=== PATIENT | female | born 1960 | race Caucasian/White ===

== ENCOUNTER 2021-03-21 08:58 | Outpatient (CLI) | payer OTHER | END 2021-03-21 08:59 | disposition home or self-care (01) | LOC: CSHCT 08:58 | PROVIDERS: ATTEND Family Medicine | DX: R07.9 Chest pain, unspecified (principal) | CPT/HCPCS: 71275; 82565 ==

== ENCOUNTER 2021-05-13 08:49 | Inpatient (IN) | payer OTHER, SELFPAY ==
[~2021-05-13 08:49] MED LIST: PROPOFOL 200 MG/20 ML VIAL ONE; Rocuronium Bromide 10 MG/ML (10ML VIAL) ONE
[2021-05-13] MEDS ORDERED: Dexamethasone 10 MG/ML VIAL ONE (09:01)
[2021-05-13 10:07] LABS: SARS-CoV-2 NAA Rapid Test Not Detected (NotDetected)
[2021-05-13 10:45] LABS: #Monocytes 0.5 10x3/uL (0.0-1.1); #Neutrophils 7.1 10x3/uL (1.5-8.4); %Basophils 0.4 % (0.0-2.0); %Eosinophils 0.5 % (0.0-6.0); %Lymphocytes 4.8 % (18.0-47.0); %Monocytes 6.7 % (0.0-10.0); Hemoglobin 10.1 g/dL (12.0-15.5); Mean Corpuscular Hemoglobin 22.9 pg (27.0-33.0); Mean Corpuscular Volume 73.9 fl (81.6-98.3); Mean Platelet Volume 10.8 fl (7.4-10.4); Platelet Count 69 10x3/uL (150-450); RBC Distribution Width 16.4 % (11.5-14.5); Red Blood Cell (RBC) Count 4.41 10x6/uL (3.90-5.03); White Blood Cell (WBC) Count 8.1 10x3/uL (3.5-10.5)
[2021-05-13] MEDS ORDERED: Lorazepam 2 MG/ML VIAL ONE (10:56)
[2021-05-13 11:27] LABS: Anisocytosis SLIGHT = 6-15 cells (100X) (0-5/hpf); Microcytosis MODERATE=15-30 cells (100X) (0-5/hpf)
[2021-05-13 11:28] LABS: Platelet Morphology Comment Appears Decreased
[2021-05-13 12:12] LABS: ALT (SGPT) 14 U/L (8-55); AST (SGOT) 11 U/L (5-34); Alkaline Phosphatase 59 U/L (40-110); Anion Gap 14 mmol/L (10-20); BUN (Urea Nitrogen) 12 mg/dL (9.8-20.1); Bilirubin, Total 0.8 mg/dL (0.2-1.2); Calc. Creatinine Clearance 0 mL/min (70-130); Calcium 9.7 mg/dL (7.8-10.44); Carbon Dioxide 26 mmol/L (23-31); Chloride 101 mmol/L (98-107); Globulin 3.6 g/dL (2.4-3.5); Glucose 198 mg/dL (80-115); Potassium 4.2 mmol/L (3.5-5.1); Protein, Total 7.6 g/dL (5.8-8.1); Sodium 137 mmol/L (136-145)
[2021-05-13] MEDS ORDERED: Albuterol Sulfate 2.5 mg/3 ml Neb ONE (12:16)
[2021-05-13] MEDS ORDERED: Ondansetron PF 4 MG/2 ML Vial IVP PRN (12:26)
[2021-05-13] MEDS ORDERED: Acetaminophen 325 MG TAB PO PRN (12:26)
[2021-05-13] MEDS ORDERED: HYDROcodone/Acetaminophen 5/325 mg Tablet PO PRN (12:26)
[2021-05-13] MEDS ORDERED: Magnesium 2 GM/50 ML(in water) 2 GM in Premix Bag 1 BAG IVPB SCH (13:00)
[2021-05-13 13:27] LABS: ALV-art Gradient 43.155 mmHg (0-20); Actual Bicarbonate (HCO3a) 24.5 mEq/L (22-28); Base Excess (BEa) -0.4 mEq/L (-2.0 to +3.0); CO2 Tension 41.1 mmHg (35.0-45.0); Calcium, Ionized (arterial) 1.24 mmol/L (1.12-1.30); Carboxyhemoglobin (COHb) 0.6 gm% (0.0-3.0); Hemoglobin (Hb) 12.1 g/dL (12.0-16.0); O2 Tension (PaO2), arterial 55.2 mmHg (> 80.0); Potassium - ABG Lab 4.3 mmol/L (3.70-5.30); Puncture Site LRA; pH, Arterial 7.39 (7.35-7.45)
[2021-05-13] MEDS ORDERED: Furosemide 100 MG/10 ML VIAL SLOW IVP SCH (15:00)
[2021-05-13] MEDS ORDERED: Lorazepam 2 MG/ML VIAL SLOW IVP SCH ×2 (15:15→15:21)
[2021-05-13] MEDS ORDERED: methylPREDNISolone Sod Succ/PF 125 MG/2 ML VIAL IVP SCH (15:15)
[2021-05-13] MEDS ORDERED: Dextrose 5% in Water 1,000 ML IV PRN (15:16)
[2021-05-13] MEDS ORDERED: Dextrose 50% Abboject 50 ML SYRINGE SLOW IVP PRN (15:16)
[2021-05-13] MEDS ORDERED: clonazePAM 0.5 MG TAB PO PRN (15:18)
[2021-05-13 15:20] LABS: Actual Bicarbonate (HCO3a) 23.2 mEq/L (22-28); Base Excess (BEa) -4.9 mEq/L (-2.0 to +3.0); CO2 Tension 56.6 mmHg (35.0-45.0); Calcium, Ionized (arterial) 1.22 mmol/L (1.12-1.30); Carboxyhemoglobin (COHb) 0.6 gm% (0.0-3.0); Hemoglobin (Hb) 12.3 g/dL (12.0-16.0); O2 Tension (PaO2), arterial 250.4 mmHg (> 80.0); Potassium - ABG Lab 4.2 mmol/L (3.70-5.30); Puncture Site RRA; pH, Arterial 7.23 (7.35-7.45)
[2021-05-13] MEDS ORDERED: Amlodipine 10 MG TAB PO SCH (15:30)
[2021-05-13] MEDS: methylPREDNISolone Sod Succ 40 MG VIAL IVP SCH (17:41)
[2021-05-13 18:08] LABS: Actual Bicarbonate (HCO3a) 24.8 mEq/L (22-28); Base Excess (BEa) -2.6 mEq/L (-2.0 to +3.0); CO2 Tension 54.3 mmHg (35.0-45.0); Carboxyhemoglobin (COHb) 0.6 gm% (0.0-3.0); Hemoglobin (Hb) 12.5 g/dL (12.0-16.0); O2 Tension (PaO2), arterial 77.9 mmHg (> 80.0); Potassium - ABG Lab 4.2 mmol/L (3.70-5.30); Puncture Site LRA; pH, Arterial 7.28 (7.35-7.45)
[2021-05-13] MEDS ORDERED: Dexmedetomidine In 0.9 % NaCl 100 ML ONE (18:09)
[2021-05-13 18:12] LABS: ALV-art Gradient 282.025 mmHg (0-20)
[2021-05-13] MEDS: HumaLOG 300 UNITS/3 ML VIAL SC PRN (18:36)
[2021-05-13] MEDS: Dexmedetomidine In 0.9 % NaCl 100 ML IVPB SCH (18:38)
[2021-05-13] MEDS ORDERED: Norepinephrine 8 MG/0.9% NS 250 ML ONE (20:14)
[2021-05-13] MEDS ORDERED: Ventilator Sedation Protocol 1 EACH FS SCH (20:45)
[2021-05-13] MEDS ORDERED: Ventilator Sedation Protocol FS SCH (20:45)
[2021-05-13] MEDS ORDERED: DISCONTINUE PREVIOUS NARCOTIC PAIN MEDICATIONS AND BENZODIAZEPINES FS SCH (20:45)
[2021-05-13] MEDS ORDERED: Propofol BOLUS 1,000 MG/100 ML VIAL IV PRN (20:45)
[2021-05-13] MEDS ORDERED: Lorazepam 2 MG/ML VIAL SLOW IVP PRN (20:45)
[2021-05-13] MEDS ORDERED: Morphine 2 MG/ML VIAL SLOW IVP PRN (20:45)
[2021-05-13] MEDS ORDERED: Fentanyl BOLUS 250 ML IVPB PRN (20:45)
[2021-05-13] MEDS ORDERED: methylPREDNISolone Sod Succ 40 MG VIAL IVP SCH (21:00)
[2021-05-13 21:22] LABS: Actual Bicarbonate (HCO3a) 27.2 mEq/L (22-28); Base Excess (BEa) -3.7 mEq/L (-2.0 to +3.0); CO2 Tension 84.4 mmHg (35.0-45.0); Calcium, Ionized (arterial) 1.23 mmol/L (1.12-1.30); Carboxyhemoglobin (COHb) 0.6 gm% (0.0-3.0); O2 Tension (PaO2), arterial 101.9 mmHg (> 80.0); Potassium - ABG Lab 4.5 mmol/L (3.70-5.30); Puncture Site RRA; pH, Arterial 7.13 (7.35-7.45)
[2021-05-13] MEDS ORDERED: Sodium Bicarbonate 100 MEQ in Dextrose 5% in Water 1,000 ML IV SCH (21:30)
[2021-05-13] MEDS: Gabapentin 300 MG CAP PO SCH (21:57)
[2021-05-13] MEDS: Metoprolol Tartrate 25 MG TAB PO SCH (21:58)
[2021-05-13] MEDS: Oseltamivir 75 MG CAP PO SCH (21:59)
[2021-05-13] MEDS: fentaNYL Citrate-0.9 % NaCl/PF 100 ML IVPB SCH (22:16)
[2021-05-13] MEDS: Propofol 1,000 MG/100 ML VIAL IV PRN (22:16)
[2021-05-13] MEDS: Propofol 1,000 MG/100 ML VIAL IV ONE ×2 (22:27→22:29)
[2021-05-13 22:35] LABS: Base Excess (BEa) -2.7 mEq/L (-2.0 to +3.0); CO2 Tension 84.9 mmHg (35.0-45.0); Calcium, Ionized (arterial) 1.21 mmol/L (1.12-1.30); Carboxyhemoglobin (COHb) 0.4 gm% (0.0-3.0); Hemoglobin (Hb) 11.7 g/dL (12.0-16.0); O2 Tension (PaO2), arterial 99.6 mmHg (> 80.0); Potassium - ABG Lab 4.8 mmol/L (3.70-5.30); Puncture Site RRA; pH, Arterial 7.14 (7.35-7.45)
[2021-05-13 22:37] LABS: ALV-art Gradient 364.675 mmHg (0-20)
[2021-05-13] MEDS: Vecuronium Bromide 50 MG in Sodium Chloride 0.9% 250 ML 250 ML IV SCH (23:15)
[2021-05-14] MEDS: Propofol 1,000 MG/100 ML VIAL IV PRN ×8 (02:17→22:04)
[2021-05-14] MEDS: methylPREDNISolone Sod Succ 40 MG VIAL IVP SCH ×5 (02:20→23:53)
[2021-05-14] MEDS ORDERED: Sodium Bicarb 50 MEQ/50 ML VIAL IVP SCH (02:30)
[2021-05-14] MEDS: HumaLOG 300 UNITS/3 ML VIAL SC PRN ×5 (03:00→23:56)
[2021-05-14 03:57] LABS: ALV-art Gradient 406.525 mmHg (0-20); Actual Bicarbonate (HCO3a) 27.9 mEq/L (22-28); Base Excess (BEa) -0.7 mEq/L (-2.0 to +3.0); CO2 Tension 67.9 mmHg (35.0-45.0); Calcium, Ionized (arterial) 1.13 mmol/L (1.12-1.30); Carboxyhemoglobin (COHb) 0.4 gm% (0.0-3.0); O2 Tension (PaO2), arterial 221.6 mmHg (> 80.0); Puncture Site RRA; pH, Arterial 7.23 (7.35-7.45)
[2021-05-14 04:06] LABS: Anion Gap 16 mmol/L (10-20); BUN (Urea Nitrogen) 21 mg/dL (9.8-20.1); Calc. Creatinine Clearance 75 mL/min (70-130); Calcium 8.7 mg/dL (7.8-10.44); Carbon Dioxide 31 mmol/L (23-31); Chloride 94 mmol/L (98-107); Glucose 263 mg/dL (80-115); Potassium 5.1 mmol/L (3.5-5.1); Sodium 136 mmol/L (136-145)
[2021-05-14] MEDS: Vecuronium Bromide 50 MG in Sodium Chloride 0.9% 250 ML 250 ML IV SCH ×3 (04:08→20:48)
[2021-05-14 05:30] LABS: Hemoglobin 10.4 g/dL (12.0-15.5); Mean Corpuscular HGB CONC 30.4 g/dL (32.0-36.0); Mean Corpuscular Volume 75.5 fl (81.6-98.3); Mean Platelet Volume 11.3 fl (7.4-10.4); Platelet Count 117 10x3/uL (150-450); RBC Distribution Width 16.6 % (11.5-14.5); Red Blood Cell (RBC) Count 4.53 10x6/uL (3.90-5.03)
[2021-05-14 05:37] LABS: MDiff Complete? YES
[2021-05-14 05:57] LABS: Band 8 % (5-11); Lymphocytes 2 % (21-51); Monocytes 6 % (0-10); Neutrophil 83 % (42-75); Reactive Lymphocytes 1 % (0-10)
[2021-05-14 05:59] LABS: Anisocytosis SLIGHT = 6-15 cells (100X) (0-5/hpf); Hypochromia SLIGHT = 6-15 cells (100X) (0-5/hpf); Microcytosis SLIGHT = 6-15 cells (100X) (0-5/hpf); Polychromasia SLIGHT = 2-3 cells (100X) (0-2/hpf); Stomatocytes SLIGHT = 2-5 cells (100X) (0-1/hpf)
[2021-05-14 06:00] LABS: Platelet Morphology Comment Appears Decreased
[2021-05-14] MEDS: fentaNYL Citrate-0.9 % NaCl/PF 100 ML IVPB SCH ×2 (07:45→22:04)
[2021-05-14] MEDS ORDERED: Amlodipine 10 MG TAB PO SCH (09:00)
[2021-05-14] MEDS: Enoxaparin Sodium 40 MG/0.4 ML SYRINGE SC SCH (09:20)
[2021-05-14] MEDS: Metoprolol Tartrate 25 MG TAB PO SCH ×2 (10:28→20:58)
[2021-05-14] MEDS: Gabapentin 300 MG CAP PO SCH ×2 (10:28→20:58)
[2021-05-14] MEDS: Pantoprazole 80 MG, Admixture Fee 1 EACH in Sodium Chloride 0.9% 100 ML IVPB SCH ×2 (10:35→18:45)
[2021-05-14] MEDS: Norepinephrine 8 MG/0.9% NS 250 ML IVPB SCH (11:45)
[2021-05-14] MEDS: Oseltamivir 75 MG CAP PO SCH ×2 (11:46→20:58)
[2021-05-15] MEDS: Propofol 1,000 MG/100 ML VIAL IV PRN ×8 (02:10→22:37)
[2021-05-15] MEDS: Vecuronium Bromide 50 MG in Sodium Chloride 0.9% 250 ML 250 ML IV SCH (02:29)
[2021-05-15] MEDS: Pantoprazole 80 MG, Admixture Fee 1 EACH in Sodium Chloride 0.9% 100 ML IVPB SCH (06:11)
[2021-05-15] MEDS: methylPREDNISolone Sod Succ 40 MG VIAL IVP SCH ×2 (06:11→21:20)
[2021-05-15] MEDS: HumaLOG 300 UNITS/3 ML VIAL SC PRN ×2 (06:12→13:46)
[2021-05-15 08:01] LABS: Actual Bicarbonate (HCO3a) 25.7 mEq/L (22-28); Base Excess (BEa) 1.4 mEq/L (-2.0 to +3.0); CO2 Tension 39.5 mmHg (35.0-45.0); Calcium, Ionized (arterial) 1.11 mmol/L (1.12-1.30); Carboxyhemoglobin (COHb) 0.3 gm% (0.0-3.0); Hemoglobin (Hb) 10.1 g/dL (12.0-16.0); O2 Tension (PaO2), arterial 252.8 mmHg (> 80.0); Potassium - ABG Lab 3.6 mmol/L (3.70-5.30); Puncture Site LRA; pH, Arterial 7.43 (7.35-7.45)
[2021-05-15 08:04] LABS: ALV-art Gradient 268.225 mmHg (0-20)
[2021-05-15] MEDS: Enoxaparin Sodium 40 MG/0.4 ML SYRINGE SC SCH (09:58)
[2021-05-15] MEDS: Oseltamivir 75 MG CAP PO SCH (09:58)
[2021-05-15] MEDS: Gabapentin 300 MG CAP PO SCH ×2 (09:58→21:20)
[2021-05-15] MEDS: Pantoprazole 40 MG VIAL IVP SCH (09:59)
[2021-05-15 10:53] LABS: #Monocytes 0.6 10x3/uL (0.0-1.1); #Neutrophils 12.9 10x3/uL (1.5-8.4); %Basophils 0.1 % (0.0-2.0); %Lymphocytes 4.5 % (18.0-47.0); %Monocytes 4.2 % (0.0-10.0); %Neutrophils 90.3 % (40.0-75.0); Hemoglobin 10.2 g/dL (12.0-15.5); Mean Corpuscular HGB CONC 30.4 g/dL (32.0-36.0); Mean Corpuscular Hemoglobin 22.4 pg (27.0-33.0); Mean Corpuscular Volume 73.5 fl (81.6-98.3); Mean Platelet Volume 11.6 fl (7.4-10.4); Platelet Count 161 10x3/uL (150-450); RBC Distribution Width 17.1 % (11.5-14.5); Red Blood Cell (RBC) Count 4.56 10x6/uL (3.90-5.03); White Blood Cell (WBC) Count 14.3 10x3/uL (3.5-10.5)
[2021-05-15 11:00] LABS: ALT (SGPT) 15 U/L (8-55); AST (SGOT) 19 U/L (5-34); Albumin 3.4 g/dL (3.4-4.8); Alkaline Phosphatase 49 U/L (40-110); Anion Gap 17 mmol/L (10-20); BUN (Urea Nitrogen) 51 mg/dL (9.8-20.1); Bilirubin, Total 0.3 mg/dL (0.2-1.2); Calc. Creatinine Clearance 45 mL/min (70-130); Calcium 8.8 mg/dL (7.8-10.44); Carbon Dioxide 25 mmol/L (23-31); Chloride 96 mmol/L (98-107); Globulin 3.4 g/dL (2.4-3.5); Glucose 202 mg/dL (80-115); Magnesium 2.6 mg/dL (1.6-2.6); Potassium 3.6 mmol/L (3.5-5.1); Protein, Total 6.8 g/dL (5.8-8.1); Sodium 134 mmol/L (136-145)
[2021-05-15 11:31] LABS: Actual Bicarbonate (HCO3a) 23.8 mEq/L (22-28); Base Excess (BEa) -0.3 mEq/L (-2.0 to +3.0); CO2 Tension 36.6 mmHg (35.0-45.0); Carboxyhemoglobin (COHb) 0.1 gm% (0.0-3.0); Hemoglobin (Hb) 10.4 g/dL (12.0-16.0); O2 Tension (PaO2), arterial 105.2 mmHg (> 80.0); Potassium - ABG Lab 3.7 mmol/L (3.70-5.30); Puncture Site RRA; pH, Arterial 7.43 (7.35-7.45)
[2021-05-15] MEDS: Metoprolol Tartrate 25 MG TAB PO SCH ×2 (13:39→21:21)
[2021-05-15] MEDS: fentaNYL Citrate-0.9 % NaCl/PF 100 ML IVPB SCH (13:53)
[2021-05-16] MEDS: Propofol 1,000 MG/100 ML VIAL IV PRN ×8 (01:35→22:26)
[2021-05-16 03:58] LABS: #Monocytes 0.7 10x3/uL (0.0-1.1); #Neutrophils 11.7 10x3/uL (1.5-8.4); %Basophils 0.1 % (0.0-2.0); %Lymphocytes 4.7 % (18.0-47.0); %Monocytes 5.2 % (0.0-10.0); %Neutrophils 89.4 % (40.0-75.0); Hemoglobin 9.7 g/dL (12.0-15.5); Mean Corpuscular HGB CONC 31.1 g/dL (32.0-36.0); Mean Corpuscular Hemoglobin 22.9 pg (27.0-33.0); Mean Corpuscular Volume 73.6 fl (81.6-98.3); Mean Platelet Volume 11.2 fl (7.4-10.4); Platelet Count 175 10x3/uL (150-450); RBC Distribution Width 17.2 % (11.5-14.5); Red Blood Cell (RBC) Count 4.24 10x6/uL (3.90-5.03); White Blood Cell (WBC) Count 13.1 10x3/uL (3.5-10.5)
[2021-05-16 04:21] LABS: ALT (SGPT) 13 U/L (8-55); AST (SGOT) 17 U/L (5-34); Albumin 3.3 g/dL (3.4-4.8); Alkaline Phosphatase 46 U/L (40-110); Anion Gap 18 mmol/L (10-20); BUN (Urea Nitrogen) 70 mg/dL (9.8-20.1); Bilirubin, Total 0.3 mg/dL (0.2-1.2); Calc. Creatinine Clearance 38 mL/min (70-130); Calcium 8.8 mg/dL (7.8-10.44); Carbon Dioxide 26 mmol/L (23-31); Chloride 96 mmol/L (98-107); Globulin 3.3 g/dL (2.4-3.5); Glucose 174 mg/dL (80-115); Magnesium 2.7 mg/dL (1.6-2.6); Potassium 4.3 mmol/L (3.5-5.1); Protein, Total 6.6 g/dL (5.8-8.1); Sodium 136 mmol/L (136-145)
[2021-05-16] MEDS: fentaNYL Citrate-0.9 % NaCl/PF 100 ML IVPB SCH ×2 (04:22→16:25)
[2021-05-16] MEDS: HumaLOG 300 UNITS/3 ML VIAL SC PRN ×3 (05:11→17:53)
[2021-05-16 08:28] LABS: Actual Bicarbonate (HCO3a) 25.2 mEq/L (22-28); Calcium, Ionized (arterial) 1.14 mmol/L (1.12-1.30); Carboxyhemoglobin (COHb) 0.3 gm% (0.0-3.0); Hemoglobin (Hb) 10.4 g/dL (12.0-16.0); Potassium - ABG Lab 4.2 mmol/L (3.70-5.30); Puncture Site LRA; pH, Arterial 7.33 (7.35-7.45)
[2021-05-16] MEDS: Oseltamivir 6 MG/ML ORAL SUSP PO SCH (08:59)
[2021-05-16] MEDS: Bisacodyl 5 MG TAB PO PRN (09:00)
[2021-05-16] MEDS: Enoxaparin Sodium 30 MG/0.3 ML SYRINGE SC SCH (09:00)
[2021-05-16] MEDS: Gabapentin 300 MG CAP PO SCH ×2 (09:03→20:24)
[2021-05-16] MEDS: Metoprolol Tartrate 25 MG TAB PO SCH ×2 (09:04→20:24)
[2021-05-16] MEDS: methylPREDNISolone Sod Succ 40 MG VIAL IVP SCH ×2 (09:04→20:25)
[2021-05-16] MEDS: Pantoprazole 40 MG VIAL IVP SCH (09:05)
[2021-05-16] MEDS ORDERED: Sodium Chloride 0.9% 500 ML IV SCH (09:30)
[2021-05-16] MEDS: Sodium Chloride 0.9% 1,000 ML IV SCH ×2 (10:42→20:24)
[2021-05-16] MEDS: Norepinephrine 8 MG/0.9% NS 250 ML IVPB SCH (16:25)
[2021-05-17] MEDS: Propofol 1,000 MG/100 ML VIAL IV PRN ×6 (01:04→17:54)
[2021-05-17 03:59] LABS: Anion Gap 17 mmol/L (10-20); BUN (Urea Nitrogen) 93 mg/dL (9.8-20.1); Calc. Creatinine Clearance 36 mL/min (70-130); Calcium 8.4 mg/dL (7.8-10.44); Carbon Dioxide 26 mmol/L (23-31); Chloride 98 mmol/L (98-107); Glucose 136 mg/dL (80-115); Potassium 5.3 mmol/L (3.5-5.1); Sodium 136 mmol/L (136-145)
[2021-05-17] MEDS: Sodium Chloride 0.9% 1,000 ML IV SCH (04:34)
[2021-05-17] MEDS: fentaNYL Citrate-0.9 % NaCl/PF 100 ML IVPB SCH (06:27)
[2021-05-17] MEDS: Enoxaparin Sodium 30 MG/0.3 ML SYRINGE SC SCH (08:31)
[2021-05-17] MEDS: Gabapentin 300 MG CAP PO SCH ×2 (08:31→20:20)
[2021-05-17] MEDS: methylPREDNISolone Sod Succ 40 MG VIAL IVP SCH ×2 (08:32→20:20)
[2021-05-17] MEDS: Metoprolol Tartrate 25 MG TAB PO SCH ×2 (08:33→20:21)
[2021-05-17] MEDS: Pantoprazole 40 MG VIAL IVP SCH (08:33)
[2021-05-17] MEDS: Dexmedetomidine In 0.9 % NaCl 100 ML IVPB SCH ×2 (08:43→18:20)
[2021-05-17] MEDS: Oseltamivir 6 MG/ML ORAL SUSP PO SCH (08:45)
[2021-05-17] MEDS ORDERED: Moisturizing Cream (Eucerin) 113 GM JAR TOP PRN (09:02)
[2021-05-17] MEDS ORDERED: Loperamide HCl 2 MG CAP PO PRN (09:02)
[2021-05-17] MEDS ORDERED: Artificial Tear Sol 15 ML BOT EA EYE PRN (09:02)
[2021-05-17 12:07] LABS: ALV-art Gradient 139.725 mmHg (0-20); Actual Bicarbonate (HCO3a) 25.6 mEq/L (22-28); Base Excess (BEa) -1.3 mEq/L (-2.0 to +3.0); CO2 Tension 54.7 mmHg (35.0-45.0); Calcium, Ionized (arterial) 1.14 mmol/L (1.12-1.30); Carboxyhemoglobin (COHb) 0.4 gm% (0.0-3.0); O2 Tension (PaO2), arterial 77.1 mmHg (> 80.0); Potassium - ABG Lab 5.1 mmol/L (3.70-5.30); Puncture Site RRA; pH, Arterial 7.29 (7.35-7.45)
[2021-05-17 12:58] LABS: Anion Gap 16 mmol/L (10-20); BUN (Urea Nitrogen) 99 mg/dL (9.8-20.1); Calc. Creatinine Clearance 36 mL/min (70-130); Calcium 8.6 mg/dL (7.8-10.44); Carbon Dioxide 25 mmol/L (23-31); Chloride 100 mmol/L (98-107); Glucose 129 mg/dL (80-115); Potassium 5.3 mmol/L (3.5-5.1); Sodium 136 mmol/L (136-145)
[2021-05-17] MEDS: Bisacodyl 5 MG TAB PO PRN (20:22)
[2021-05-18] MEDS: Dexmedetomidine In 0.9 % NaCl 100 ML IVPB SCH ×3 (01:42→10:44)
[2021-05-18] MEDS: Propofol 1,000 MG/100 ML VIAL IV PRN (01:43)
[2021-05-18 03:55] LABS: #Monocytes 0.6 10x3/uL (0.0-1.1); #Neutrophils 4.6 10x3/uL (1.5-8.4); %Basophils 0.2 % (0.0-2.0); %Monocytes 9.6 % (0.0-10.0); %Neutrophils 74.9 % (40.0-75.0); Hemoglobin 9.2 g/dL (12.0-15.5); Mean Corpuscular HGB CONC 30.3 g/dL (32.0-36.0); Mean Corpuscular Hemoglobin 22.4 pg (27.0-33.0); Mean Corpuscular Volume 74.1 fl (81.6-98.3); Mean Platelet Volume 10.4 fl (7.4-10.4); Platelet Count 173 10x3/uL (150-450); White Blood Cell (WBC) Count 6.2 10x3/uL (3.5-10.5)
[2021-05-18 04:17] LABS: ALT (SGPT) 40 U/L (8-55); AST (SGOT) 25 U/L (5-34); Albumin 3.4 g/dL (3.4-4.8); Alkaline Phosphatase 48 U/L (40-110); Anion Gap 17 mmol/L (10-20); BUN (Urea Nitrogen) 109 mg/dL (9.8-20.1); Bilirubin, Total 0.3 mg/dL (0.2-1.2); Calc. Creatinine Clearance 38 mL/min (70-130); Carbon Dioxide 25 mmol/L (23-31); Chloride 103 mmol/L (98-107); Globulin 3.3 g/dL (2.4-3.5); Glucose 147 mg/dL (80-115); Magnesium 3.5 mg/dL (1.6-2.6); Phosphorus 7.5 mg/dL (2.3-4.7); Potassium 5.2 mmol/L (3.5-5.1); Protein, Total 6.7 g/dL (5.8-8.1); Sodium 140 mmol/L (136-145)
[2021-05-18] MEDS: Oseltamivir 6 MG/ML ORAL SUSP PO SCH (09:06)
[2021-05-18] MEDS: Metoprolol Tartrate 25 MG TAB PO SCH (09:06)
[2021-05-18] MEDS: methylPREDNISolone Sod Succ 40 MG VIAL IVP SCH ×2 (09:06→20:08)
[2021-05-18] MEDS: Gabapentin 300 MG CAP PO SCH ×2 (09:06→19:59)
[2021-05-18] MEDS: Enoxaparin Sodium 30 MG/0.3 ML SYRINGE SC SCH (09:07)
[2021-05-18] MEDS: Pantoprazole 40 MG VIAL IVP SCH (09:07)
[2021-05-18 10:50] LABS: Actual Bicarbonate (HCO3a) 27.3 mEq/L (22-28); Base Excess (BEa) 1.2 mEq/L (-2.0 to +3.0); CO2 Tension 50.4 mmHg (35.0-45.0); Calcium, Ionized (arterial) 1.23 mmol/L (1.12-1.30); Carboxyhemoglobin (COHb) 0.3 gm% (0.0-3.0); Hemoglobin (Hb) 9.5 g/dL (12.0-16.0); O2 Tension (PaO2), arterial 72.8 mmHg (> 80.0); Potassium - ABG Lab 4.8 mmol/L (3.70-5.30); Puncture Site LRA; pH, Arterial 7.35 (7.35-7.45)
[2021-05-18] MEDS: HumaLOG 300 UNITS/3 ML VIAL SC PRN (12:21)
[2021-05-18] MEDS: hydrALAZINE 20 MG/ML VIAL SLOW IVP PRN ×2 (15:07→21:49)
[2021-05-18] MEDS ORDERED: Amlodipine 10 MG TAB PO SCH (16:30)
[2021-05-18] MEDS: Labetalol HCl 100 MG/20 ML VIAL SLOW IVP PRN ×2 (16:35→22:09)
[2021-05-18] MEDS: Metoprolol Tartrate 5 MG/5 ML VIAL IVP SCH (20:08)
[2021-05-18] MEDS ORDERED: Morphine 4 MG/ML VIAL SLOW IVP SCH (22:30)
[2021-05-18] MEDS ORDERED: Nitroglycerin 2% Ointment 1 INCH/1 GM Packet TOP SCH (22:30)
[2021-05-18] MEDS ORDERED: Lorazepam 2 MG/ML VIAL SLOW IVP SCH (23:45)
[2021-05-18] MEDS ORDERED: Labetalol HCl 100 MG/20 ML VIAL SLOW IVP SCH (23:45)
[2021-05-18] MEDS ORDERED: hydrALAZINE 20 MG/ML VIAL SLOW IVP SCH (23:45)
[2021-05-18] MEDS ORDERED: cloNIDine 0.2mg/24 Hour PATCH TD SCH (23:45)
[2021-05-19] MEDS: Metoprolol Tartrate 5 MG/5 ML VIAL IVP SCH ×4 (01:00→20:04)
[2021-05-19] MEDS: niCARdipine 25 MG in Sodium Chloride 0.9% 250 ML 250 ML IVPB SCH ×11 (02:35→22:42)
[2021-05-19 04:08] LABS: #Basophils 0.1 10x3/uL (0.0-0.2); #Monocytes 0.7 10x3/uL (0.0-1.1); #Neutrophils 6.8 10x3/uL (1.5-8.4); %Basophils 0.6 % (0.0-2.0); %Eosinophils 0.1 % (0.0-6.0); %Lymphocytes 9.7 % (18.0-47.0); %Monocytes 7.5 % (0.0-10.0); %Neutrophils 77.4 % (40.0-75.0); Hemoglobin 10.3 g/dL (12.0-15.5); Mean Corpuscular HGB CONC 30.4 g/dL (32.0-36.0); Mean Corpuscular Hemoglobin 22.6 pg (27.0-33.0); Mean Corpuscular Volume 74.5 fl (81.6-98.3); Mean Platelet Volume 9.8 fl (7.4-10.4); Platelet Count 199 10x3/uL (150-450); RBC Distribution Width 16.6 % (11.5-14.5); Red Blood Cell (RBC) Count 4.55 10x6/uL (3.90-5.03); White Blood Cell (WBC) Count 8.8 10x3/uL (3.5-10.5)
[2021-05-19 04:19] LABS: Anion Gap 16 mmol/L (10-20); BUN (Urea Nitrogen) 96 mg/dL (9.8-20.1); Calc. Creatinine Clearance 56 mL/min (70-130); Calcium 10.1 mg/dL (7.8-10.44); Carbon Dioxide 28 mmol/L (23-31); Chloride 108 mmol/L (98-107); Glucose 125 mg/dL (80-115); Sodium 147 mmol/L (136-145)
[2021-05-19] MEDS ORDERED: Lorazepam 2 MG/ML VIAL SLOW IVP SCH (05:15)
[2021-05-19] MEDS ORDERED: Morphine 4 MG/ML VIAL SLOW IVP SCH (05:15)
[2021-05-19] MEDS ORDERED: Lorazepam 2 MG/ML VIAL SLOW IVP PRN (05:34)
[2021-05-19] MEDS: Pantoprazole 40 MG VIAL IVP SCH (09:06)
[2021-05-19] MEDS: Enoxaparin Sodium 30 MG/0.3 ML SYRINGE SC SCH (09:07)
[2021-05-19] MEDS: methylPREDNISolone Sod Succ 40 MG VIAL IVP SCH ×2 (09:07→20:05)
[2021-05-19] MEDS: Gabapentin 300 MG CAP PO SCH ×2 (11:25→20:05)
[2021-05-19] MEDS: Amlodipine 10 MG TAB PO SCH (11:25)
[2021-05-19] MEDS: Labetalol HCl 100 MG/20 ML VIAL SLOW IVP PRN ×2 (11:54→15:28)
[2021-05-19] MEDS: hydrALAZINE 20 MG/ML VIAL SLOW IVP PRN ×2 (15:04→22:49)
[2021-05-19] MEDS ORDERED: cloNIDine 0.1mg/24 Hour PATCH TD SCH (16:00)
[2021-05-19] MEDS: Morphine 4 MG/ML VIAL SLOW IVP PRN ×2 (18:43→21:48)
[2021-05-20] MEDS: niCARdipine 25 MG in Sodium Chloride 0.9% 250 ML 250 ML IVPB SCH ×10 (00:56→23:55)
[2021-05-20] MEDS: Metoprolol Tartrate 5 MG/5 ML VIAL IVP SCH ×4 (01:46→20:44)
[2021-05-20] MEDS: hydrALAZINE 20 MG/ML VIAL SLOW IVP PRN (03:18)
[2021-05-20] MEDS: Labetalol HCl 100 MG/20 ML VIAL SLOW IVP PRN ×2 (04:35→09:42)
[2021-05-20] MEDS: Amlodipine 10 MG TAB PO SCH (09:17)
[2021-05-20] MEDS: Gabapentin 300 MG CAP PO SCH ×2 (09:18→20:44)
[2021-05-20] MEDS: methylPREDNISolone Sod Succ 40 MG VIAL IVP SCH ×2 (09:22→20:45)
[2021-05-20] MEDS: Enoxaparin Sodium 40 MG/0.4 ML SYRINGE SC SCH (09:23)
[2021-05-20] MEDS: Pantoprazole 40 MG VIAL IVP SCH (09:23)
[2021-05-20 10:18] LABS: Anion Gap 14 mmol/L (10-20); BUN (Urea Nitrogen) 73 mg/dL (9.8-20.1); Calc. Creatinine Clearance 101 mL/min (70-130); Calcium 9.8 mg/dL (7.8-10.44); Carbon Dioxide 26 mmol/L (23-31); Chloride 113 mmol/L (98-107); Glucose 166 mg/dL (80-115); Potassium 4.1 mmol/L (3.5-5.1); Sodium 149 mmol/L (136-145)
[2021-05-20] MEDS: Dextrose 5% in Water 1,000 ML IV SCH (12:15)
[2021-05-20] MEDS ORDERED: Artificial Tear Sol 15 ML BOT EA EYE PRN (21:13)
[2021-05-20] MEDS: Morphine 4 MG/ML VIAL SLOW IVP PRN (23:57)
[2021-05-21] MEDS: niCARdipine 25 MG in Sodium Chloride 0.9% 250 ML 250 ML IVPB SCH ×6 (02:30→21:25)
[2021-05-21] MEDS: Metoprolol Tartrate 5 MG/5 ML VIAL IVP SCH ×2 (02:30→08:59)
[2021-05-21 03:49] LABS: Anion Gap 13 mmol/L (10-20); BUN (Urea Nitrogen) 63 mg/dL (9.8-20.1); Calc. Creatinine Clearance 116 mL/min (70-130); Calcium 9.7 mg/dL (7.8-10.44); Carbon Dioxide 25 mmol/L (23-31); Chloride 107 mmol/L (98-107); Glucose 169 mg/dL (80-115); Potassium 4.1 mmol/L (3.5-5.1); Sodium 141 mmol/L (136-145)
[2021-05-21 07:06] LABS: Troponin I 0.041 ng/mL (< 0.028)
[2021-05-21] MEDS: Dextrose 5% in Water 1,000 ML IV SCH (07:30)
[2021-05-21] MEDS ORDERED: Lisinopril 10 MG TAB PO SCH (09:15)
[2021-05-21] MEDS: Amlodipine 10 MG TAB PO SCH (09:36)
[2021-05-21] MEDS: Gabapentin 300 MG CAP PO SCH ×2 (09:37→20:11)
[2021-05-21] MEDS: Enoxaparin Sodium 40 MG/0.4 ML SYRINGE SC SCH (09:37)
[2021-05-21] MEDS: methylPREDNISolone Sod Succ 40 MG VIAL IVP SCH ×2 (09:39→21:25)
[2021-05-21 13:32] LABS: CKMB 1.9 ng/mL (0-6.6)
[2021-05-21] MEDS: HYDROcodone/Acetaminophen 5/325 mg Tablet PO PRN ×2 (15:57→20:12)
[2021-05-21 18:03] LABS: SARS-CoV-2 PCR by NAA Not Detected (NotDetected)
[2021-05-21] MEDS: Famotidine 20 MG TAB PO SCH (20:12)
[2021-05-21] MEDS: Lisinopril 10 MG TAB PO SCH (20:12)
[2021-05-21] MEDS: cloNIDine 0.1 MG TAB PO SCH (20:12)
[2021-05-22] MEDS: Labetalol HCl 100 MG/20 ML VIAL SLOW IVP PRN ×2 (00:36→04:19)
[2021-05-22] MEDS: niCARdipine 25 MG in Sodium Chloride 0.9% 250 ML 250 ML IVPB SCH ×6 (01:25→17:53)
[2021-05-22 04:30] LABS: Anion Gap 14 mmol/L (10-20); BUN (Urea Nitrogen) 48 mg/dL (9.8-20.1); Calc. Creatinine Clearance 135 mL/min (70-130); Calcium 9.3 mg/dL (7.8-10.44); Carbon Dioxide 23 mmol/L (23-31); Chloride 108 mmol/L (98-107); Glucose 183 mg/dL (80-115); Potassium 4.3 mmol/L (3.5-5.1); Sodium 141 mmol/L (136-145)
[2021-05-22 04:41] LABS: Troponin I 0.035 ng/mL (< 0.028)
[2021-05-22] MEDS: Gabapentin 300 MG CAP PO SCH ×2 (08:19→20:09)
[2021-05-22] MEDS: cloNIDine 0.1 MG TAB PO SCH ×2 (08:20→20:08)
[2021-05-22] MEDS: Amlodipine 10 MG TAB PO SCH (08:21)
[2021-05-22] MEDS: Famotidine 20 MG TAB PO SCH ×2 (08:21→20:08)
[2021-05-22] MEDS: methylPREDNISolone Sod Succ 40 MG VIAL IVP SCH (08:21)
[2021-05-22] MEDS: Lisinopril 10 MG TAB PO SCH (08:21)
[2021-05-22] MEDS: Enoxaparin Sodium 40 MG/0.4 ML SYRINGE SC SCH (08:22)
[2021-05-22] MEDS: HYDROcodone/Acetaminophen 5/325 mg Tablet PO PRN (12:00)
[2021-05-22] MEDS: hydrALAZINE 25 MG TAB PO SCH ×3 (12:26→20:10)
[2021-05-22] MEDS ORDERED: cloNIDine 0.1 MG TAB PO SCH (15:00)
[2021-05-22] MEDS: Lisinopril 20 MG TAB PO SCH (20:10)
[2021-05-23 04:12] LABS: Anion Gap 11 mmol/L (10-20); BUN (Urea Nitrogen) 43 mg/dL (9.8-20.1); Calc. Creatinine Clearance 138 mL/min (70-130); Calcium 9.1 mg/dL (7.8-10.44); Carbon Dioxide 25 mmol/L (23-31); Chloride 110 mmol/L (98-107); Glucose 113 mg/dL (80-115); Potassium 3.9 mmol/L (3.5-5.1); Sodium 142 mmol/L (136-145)
[2021-05-23] MEDS: Enoxaparin Sodium 40 MG/0.4 ML SYRINGE SC SCH (08:38)
[2021-05-23] MEDS: Lisinopril 20 MG TAB PO SCH ×2 (08:39→20:48)
[2021-05-23] MEDS: cloNIDine 0.1 MG TAB PO SCH ×3 (08:40→20:47)
[2021-05-23] MEDS: hydrALAZINE 25 MG TAB PO SCH ×4 (08:40→20:48)
[2021-05-23] MEDS: Famotidine 20 MG TAB PO SCH ×2 (08:40→20:47)
[2021-05-23] MEDS: methylPREDNISolone Sod Succ 40 MG VIAL IVP SCH (08:41)
[2021-05-23] MEDS: Gabapentin 300 MG CAP PO SCH ×2 (08:41→20:47)
[2021-05-23] MEDS: NIFEdipine XL 30 MG TAB PO SCH (08:41)
[2021-05-23] MEDS: HYDROcodone/Acetaminophen 5/325 mg Tablet PO PRN ×2 (13:45→20:48)
[2021-05-24] MEDS: HYDROcodone/Acetaminophen 5/325 mg Tablet PO PRN ×2 (03:20→15:43)
[2021-05-24] MEDS: Benzonatate 100 MG CAP PO PRN (04:07)
[2021-05-24] MEDS ORDERED: predniSONE 20 MG TAB PO SCH (08:15)
[2021-05-24] MEDS: Enoxaparin Sodium 40 MG/0.4 ML SYRINGE SC SCH (08:44)
[2021-05-24] MEDS: NIFEdipine XL 30 MG TAB PO SCH (08:45)
[2021-05-24] MEDS: Lisinopril 20 MG TAB PO SCH ×2 (08:45→21:13)
[2021-05-24] MEDS: Gabapentin 300 MG CAP PO SCH ×3 (08:45→21:13)
[2021-05-24] MEDS: hydrALAZINE 25 MG TAB PO SCH ×4 (08:45→21:11)
[2021-05-24] MEDS: Famotidine 20 MG TAB PO SCH ×2 (08:45→21:13)
[2021-05-24] MEDS: cloNIDine 0.1 MG TAB PO SCH ×3 (08:45→21:12)
[2021-05-24] MEDS ORDERED: Sodium Chloride 0.65% Nasal 44 ML BOT EA NARE PRN (16:55)
[2021-05-24] MEDS ORDERED: hydrOXYzine 25 MG TAB PO PRN (16:55)
[2021-05-24] MEDS ORDERED: Calcium Carbonate 500 MG ChewTAB PO PRN (16:55)
[2021-05-24] MEDS: Cepastat Lozenges 1 LOZ PO PRN (17:17)
[2021-05-24] MEDS: HumaLOG 300 UNITS/3 ML VIAL SC PRN ×2 (17:27→21:22)
[2021-05-24] MEDS: GUAIFENESIN SF SOLN 200 MG/10 ML UDCUP PO PRN ×2 (17:27→21:32)
[2021-05-25] MEDS: Labetalol HCl 100 MG/20 ML VIAL SLOW IVP PRN (00:51)
[2021-05-25] MEDS: Benzonatate 100 MG CAP PO PRN (01:34)
[2021-05-25] MEDS: GUAIFENESIN SF SOLN 200 MG/10 ML UDCUP PO PRN ×2 (02:18→08:32)
[2021-05-25 04:41] LABS: #Eosinphils 0.1 10x3/uL (0.0-0.5); #Monocytes 0.8 10x3/uL (0.0-1.1); #Neutrophils 7.8 10x3/uL (1.5-8.4); %Basophils 0.2 % (0.0-2.0); %Eosinophils 0.8 % (0.0-6.0); %Lymphocytes 17.1 % (18.0-47.0); %Neutrophils 72.9 % (40.0-75.0); Hemoglobin 9.4 g/dL (12.0-15.5); Mean Corpuscular HGB CONC 31.1 g/dL (32.0-36.0); Mean Corpuscular Hemoglobin 22.4 pg (27.0-33.0); Mean Corpuscular Volume 72.1 fl (81.6-98.3); Platelet Count 202 10x3/uL (150-450); RBC Distribution Width 16.2 % (11.5-14.5); Red Blood Cell (RBC) Count 4.19 10x6/uL (3.90-5.03); White Blood Cell (WBC) Count 10.7 10x3/uL (3.5-10.5)
[2021-05-25 04:55] LABS: ALT (SGPT) 40 U/L (8-55); AST (SGOT) 19 U/L (5-34); Albumin 3.1 g/dL (3.4-4.8); Alkaline Phosphatase 43 U/L (40-110); Anion Gap 13 mmol/L (10-20); BUN (Urea Nitrogen) 29 mg/dL (9.8-20.1); Bilirubin, Total 0.6 mg/dL (0.2-1.2); Calc. Creatinine Clearance 144 mL/min (70-130); Carbon Dioxide 25 mmol/L (23-31); Chloride 107 mmol/L (98-107); Globulin 2.8 g/dL (2.4-3.5); Glucose 96 mg/dL (80-115); Potassium 3.8 mmol/L (3.5-5.1); Protein, Total 5.9 g/dL (5.8-8.1); Sodium 141 mmol/L (136-145)
[2021-05-25] MEDS: hydrALAZINE 25 MG TAB PO SCH ×4 (08:30→20:32)
[2021-05-25] MEDS: cloNIDine 0.1 MG TAB PO SCH ×3 (08:30→20:31)
[2021-05-25] MEDS: HYDROcodone/Acetaminophen 5/325 mg Tablet PO PRN (08:30)
[2021-05-25] MEDS: predniSONE 20 MG TAB PO SCH (08:31)
[2021-05-25] MEDS: NIFEdipine XL 30 MG TAB PO SCH (08:31)
[2021-05-25] MEDS: Gabapentin 300 MG CAP PO SCH ×2 (08:32→20:32)
[2021-05-25] MEDS: Lisinopril 20 MG TAB PO SCH ×2 (08:32→20:32)
[2021-05-25] MEDS: Enoxaparin Sodium 40 MG/0.4 ML SYRINGE SC SCH (08:32)
[2021-05-25] MEDS: Famotidine 20 MG TAB PO SCH ×2 (08:32→20:32)
[2021-05-25] MEDS ORDERED: NIFEdipine XL 30 MG TAB PO SCH (17:45)
[2021-05-25] MEDS: HumaLOG 300 UNITS/3 ML VIAL SC PRN (18:16)
[2021-05-26] MEDS: Cepastat Lozenges 1 LOZ PO PRN (02:16)
[2021-05-26] MEDS: HYDROcodone/Acetaminophen 5/325 mg Tablet PO PRN (02:25)
[2021-05-26 05:57] VITALS: BMI 50.5
[2021-05-26] MEDS: Enoxaparin Sodium 40 MG/0.4 ML SYRINGE SC SCH (08:47)
[2021-05-26] MEDS: Lisinopril 20 MG TAB PO SCH (08:48)
[2021-05-26] MEDS: hydrALAZINE 25 MG TAB PO SCH ×2 (08:48→13:05)
[2021-05-26] MEDS: Famotidine 20 MG TAB PO SCH (08:48)
[2021-05-26] MEDS: predniSONE 20 MG TAB PO SCH (08:48)
[2021-05-26] MEDS: cloNIDine 0.1 MG TAB PO SCH (08:48)
[2021-05-26] MEDS: Gabapentin 300 MG CAP PO SCH (08:48)
[2021-05-26] MEDS ORDERED: NIFEdipine XL 30 MG TAB PO SCH (09:00)
[2021-05-26] MEDS: HumaLOG 300 UNITS/3 ML VIAL SC PRN (11:11)
[2021-05-26 11:42] VITALS: BP 140/72; TEMP 97.6
== END 2021-05-26 14:11 | disposition home health service (06) | DRG 870 ==
LOC: CSHERS 08:49 → CSHTELE 12:39 → CSHICU 15:09 → CSHTELE 05-23 23:22
PROVIDERS: ADMIT Internal Medicine; ATTEND Family Medicine
PROC: 0BH18EZ Insertion of Endotracheal Airway into Trachea, Via Natural or Artificial Opening Endoscopic (ICD-10-PCS; principal; 2021-05-13)
PROC: 5A1955Z Respiratory Ventilation, Greater than 96 Consecutive Hours (ICD-10-PCS; 2021-05-13)
PROC: 3E033XZ Introduction of Vasopressor into Peripheral Vein, Percutaneous Approach (ICD-10-PCS; 2021-05-13)
PROC: 5A09357 Assistance with Respiratory Ventilation, Less than 24 Consecutive Hours, Continuous Positive Airway Pressure (ICD-10-PCS; 2021-05-19)
DX: A41.9 Sepsis, unspecified organism (principal); J10.00 Influenza due to other identified influenza virus with unspecified type of pneumonia; R65.21 Severe sepsis with septic shock; J96.01 Acute respiratory failure with hypoxia; J96.02 Acute respiratory failure with hypercapnia; N17.0 Acute kidney failure with tubular necrosis; J45.901 Unspecified asthma with (acute) exacerbation; Z68.43 Body mass index [BMI] 50.0-59.9, adult; E87.2 Acidosis; K92.2 Gastrointestinal hemorrhage, unspecified; E22.2 Syndrome of inappropriate secretion of antidiuretic hormone; E78.5 Hyperlipidemia, unspecified; G47.33 Obstructive sleep apnea (adult) (pediatric); F41.9 Anxiety disorder, unspecified; E66.01 Morbid (severe) obesity due to excess calories; I12.9 Hypertensive chronic kidney disease with stage 1 through stage 4 chronic kidney disease, or unspecified chronic kidney disease; B19.20 Unspecified viral hepatitis C without hepatic coma; N18.2 Chronic kidney disease, stage 2 (mild); I16.0 Hypertensive urgency; E11.65 Type 2 diabetes mellitus with hyperglycemia; G89.29 Other chronic pain; D63.1 Anemia in chronic kidney disease; M54.9 Dorsalgia, unspecified; E11.22 Type 2 diabetes mellitus with diabetic chronic kidney disease; F32.A Depression, unspecified; E88.09 Other disorders of plasma-protein metabolism, not elsewhere classified; E87.5 Hyperkalemia; T17.990A Other foreign object in respiratory tract, part unspecified in causing asphyxiation, initial encounter; Z88.0 Allergy status to penicillin; Z88.1 Allergy status to other antibiotic agents; Z79.899 Other long term (current) drug therapy; Z90.710 Acquired absence of both cervix and uterus; Z98.890 Other specified postprocedural states; Z87.891 Personal history of nicotine dependence
CPT/HCPCS: 31500; 36415; 36416; 36600; 70450; 71045; 80048; 80053; 82088; 82533; 82553; 82728; 82805; 83735; 83880; 83930; 83935; 84100; 84244; 84439; 84484; 85025; 86140; 87040; 87086; 93005; 93010; 93306; 93975; 94002; 94003; 94640; 94644; 94660; 94667; 94668; 94669; 94760; 96374; C9113; J0360; J1100; J1650; J1815; J1940; J1956; J2060; J2270; J2704; J2920; J2930; J3475; J3490; J7030; J7050; J7070; J7512; J7611; J7620; U0003; U0005

== ENCOUNTER 2022-09-24 09:50 | Outpatient (CLI) | payer OTHER ==
[2022-09-24] MEDS ORDERED: Iopamidol 370 76% 100 ML VIAL ONE (10:23)
== END 2022-09-24 09:51 | disposition home or self-care (01) ==
LOC: CSHCT 09:50
PROVIDERS: ATTEND Internal Medicine Hematology & Oncology
DX: R16.0 Hepatomegaly, not elsewhere classified (principal); R93.5 Abnormal findings on diagnostic imaging of other abdominal regions, including retroperitoneum
CPT/HCPCS: 74170; 82565

== ENCOUNTER 2023-01-30 15:13 | Outpatient (CLI) | payer OTHER | END 2023-01-30 15:14 | disposition home or self-care (01) | LOC: CSHRAD 15:13 | PROVIDERS: ATTEND Neurological Surgery | DX: M47.812 Spondylosis without myelopathy or radiculopathy, cervical region (principal); Z98.890 Other specified postprocedural states | CPT/HCPCS: 72040 ==

== ENCOUNTER 2023-03-12 14:13 | Outpatient (CLI) | payer OTHER | END 2023-03-12 14:14 | disposition home or self-care (01) | LOC: CSHRAD 14:13 | PROVIDERS: ATTEND Neurological Surgery | DX: M48.02 Spinal stenosis, cervical region (principal); Z98.890 Other specified postprocedural states | CPT/HCPCS: 72040 ==

== ENCOUNTER 2024-01-05 10:48 | Emergency (ER) | payer OTHER ==
[2024-01-05] MEDS ORDERED: Furosemide 40 MG (4 mL) VIAL ONE (11:05)
[2024-01-05] MEDS ORDERED: Magnesium 2 GM/50 ML BAG (IN WATER) ONE (11:06)
[2024-01-05] MEDS ORDERED: Albuterol 2.5 MG (3 mL) NEB ONE ×2 (11:10→12:36)
[2024-01-05] MEDS ORDERED: Ipratropium Bromide 2.5 ml Neb ONE ×2 (11:11→12:36)
[2024-01-05 11:47] LABS: #Basophils 0.07 10x3/uL (0.0-0.2); #Eosinophils 0.35 10x3/uL (0.0-0.5); #Monocytes 0.51 10x3/uL (0.0-1.1); #Neutrophils 6.24 10x3/uL (1.5-8.4); %Basophils 0.8 % (0.0-2.0); %Eosinophils 3.9 % (0.0-6.0); %Lymphocytes 18.9 % (18.0-47.0); %Monocytes 5.7 % (0.0-10.0); %Neutrophils 70.1 % (40.0-75.0); Hemoglobin 12.9 g/dL (12.0-15.5); Mean Corpuscular HGB CONC 33.9 g/dL (32.0-36.0); Mean Corpuscular Hemoglobin 28.5 pg (27.0-33.0); Mean Corpuscular Volume 84.1 fL (81.6-98.3); Mean Platelet Volume 10.8 fL (7.4-10.4); RBC Distribution Width 13.5 % (11.5-14.5); Red Blood Cell (RBC) Count 4.52 10x6/uL (3.90-5.03); White Blood Cell (WBC) Count 8.9 10x3/uL (3.5-10.5)
[2024-01-05 11:54] LABS: ALT (SGPT) 20 U/L (8-55); AST (SGOT) 11 U/L (5-34); Albumin 3.8 g/dL (3.4-4.8); Alkaline Phosphatase 63 U/L (40-110); Anion Gap 15 mmol/L (10-20); BUN (Urea Nitrogen) 17 mg/dL (9.8-20.1); Bilirubin, Total 0.9 mg/dL (0.2-1.2); Calc. Creatinine Clearance 0 mL/min (70-130); Calcium 9.9 mg/dL (7.8-10.44); Carbon Dioxide 25 mmol/L (23-31); Chloride 101 mmol/L (98-107); Estimated GFR 72; Globulin 3.7 g/dL (2.4-3.5); Glucose 200 mg/dL (80-115); Potassium 4.5 mmol/L (3.5-5.1); Protein, Total 7.5 g/dL (5.8-8.1); Sodium 136 mmol/L (136-145)
[2024-01-05 11:57] LABS: Troponin I 0.012 ng/mL (< 0.028)
[2024-01-05 12:02] LABS: Platelet Count 80 10x3/uL (150-450)
[2024-01-05 12:03] LABS: Large Platelets SLIGHT (None Seen); Platelet Adequacy Comment Appears Decreased
[2024-01-05] MEDS ORDERED: cefTRIAXone (ROCEPHIN) 2 GM VIAL ONE (16:42)
[2024-01-05] MEDS ORDERED: Azithromycin 250 MG TAB ONE (17:17)
[2024-01-06] MEDS ORDERED: Sevoflurane 250 ML INH ANEST BOTTLE ONE (09:26)
== END 2024-01-05 17:30 | disposition short-term general hospital (02) ==
LOC: CSHERS 10:48
DX: J44.1 Chronic obstructive pulmonary disease with (acute) exacerbation (principal); I11.0 Hypertensive heart disease with heart failure; I50.9 Heart failure, unspecified
CPT/HCPCS: 36415; 71045; 80053; 83880; 84484; 85025; 93005; 93010; 94640; 96365; 96375; J0696; J1940; J3475; J7611; J7644